=== PATIENT | male | born 1980 ===

== ENCOUNTER 2017-06-22 05:18 | Inpatient (IN) | payer OTHER ==
[~2017-06-22] VITALS: Ht 170.2 cm; Wt 79.4 kg
[2017-06-22] VITALS (15 sets, daily range): BP systolic 115–135; BP diastolic 44–93
[~2017-06-22 05:18] MED LIST: NORCO 10-325 T1 EACH ORAL
[2017-06-22] MEDS ORDERED: Bacitracin 50000 Units Vial ONE ×2 (06:26→09:37)
[2017-06-22] MEDS ORDERED: Thrombin 5000 units TOPIC ONE (06:28)
[2017-06-22] MEDS ORDERED: Surgicel 4in x 8in TOPIC ONE (06:28)
[2017-06-22] MEDS ORDERED: Vancomycin 1gm inj IVPB ONE (06:29)
[2017-06-22] MEDS ORDERED: Heparin 5000 units/ml inj ONE (06:29)
[2017-06-22] MEDS ORDERED: Bupivacaine w/Epi 0.5% 30ml Vial INJ ONE (06:30)
[2017-06-22] MEDS ORDERED: Lidocaine 1% 10mg/ml/Epi 0.005mg/ml 30ml vial INJ ONE (06:30)
[2017-06-22] MEDS ORDERED: oxyCODONE 5mg IR tab ORAL PRN ×2 (06:45)
[2017-06-22] MEDS ORDERED: Tylenol #3 tab (300mg/30mg) ORAL PRN (06:45)
[2017-06-22] MEDS ORDERED: traMADol 50mg tab ORAL PRN (06:45)
[2017-06-22] MEDS ORDERED: PCA HYDROmorphone 1mg/ml 30 ML IV PRN (06:45)
--- NOTE | 2017-06-22 06:52 | Anethesia Preoperative Eval ---
Anesthesia Pre-op PMH/ROS General Date of Evaluation: Jun 22, 2017 Time of Evaluation: 07:11 Anesthesiologist: Abigail ASA Score: ASA 1 Mallampati Score Class I : Soft palate, uvula, fauces, pillars visible Class II: Soft palate, uvula, fauces visible Class III: Soft palate, base of uvula visible Class IV: Only hard plate visible Mallampati Classification: Class II Surgeon: Oz Diagnosis: Back Pain Surgical Procedure: ALIF L4-5, L5-S1, PSF Anesthesia History: none Family History: no anesthesia problems Allergies: Coded Allergies: No Known Allergies (Unverified , 06/19/17) Medications: see eMAR Anesthesia Pre-op Phys. Exam Physician Exam Last Vital Signs Date Time Temp Pulse Resp B/P (MAP) Pulse Ox O2 Delivery O2 Flow Rate FiO2 06/22/17 05:57 98.4 56 19 119/77 95 Room Air Constitutional: NAD Neurologic: CN 2-12 intact Cardiovascular: RRR Respiratory: CTA Gastrointestinal: S/NT/ND Airway Exam Mallampati Score: Class II MO: full ROM: full Teeth: intact Anesthesia Pre-op A/P Risk Assessment & Plan Assessment: ASA 1 Plan: GA, BIS, Glidescope Status Change Before Surgery: No Pre-Antibiotics Dru Grams Ancef IV Given Within 1 Hr of Incision: Yes Cliff Hayes MD Jun 22, 2017 06:52
--- NOTE | 2017-06-22 06:53 | Immediate Post-Op Evaluation ---
Immediate Post-Op Evalulation Immediate Post-Op Evalulation Procedure: ALIF L4-5, L5-S1, PSF Date of Evaluation: Jun 22, 2017 Time of Evaluation: 13:05 IV Fluids: 1600 LR Blood Products: 0 Estimated Blood Loss: 75 Urinary Output: 600 Blood Pressure Systolic: 130 Blood Pressure Diastolic: 83 Pulse Rate: 98 Respiratory Rate: 16 O2 Sat by Pulse Oximetry: 98 Temperature (Fahrenheit): 97.4 Pain Score (1-10): 3 Nausea: No Vomiting: No Complications 0 Patient Status: awake, reacts, patent, extubated, none Hydration Status: adequate Dru Grams Ancef IV Given Within 1 Hr of Incision: Yes Time Given: 07:31 Cliff Hayes MD Jun 22, 2017 06:53
[2017-06-22] MEDS ORDERED: Ketorolac 30mg Inj IV PRN (07:00)
[2017-06-22] MEDS ORDERED: Atropine Inj 1mg/10ml Syr IV PRN (07:00)
[2017-06-22] MEDS ORDERED: Norco 7.5mg/325mg tab ORAL PRN (07:00)
[2017-06-22] MEDS ORDERED: Neostigmine 1mg/ml 10ml Inj ONE (07:00)
[2017-06-22] MEDS ORDERED: DiphenhydrAMINE 50mg/ml Inj IVP PRN (07:00)
[2017-06-22] MEDS ORDERED: NS Irrig 1000ml ONE (07:00)
[2017-06-22] MEDS ORDERED: LR 1000ml ONE (07:00)
[2017-06-22] MEDS ORDERED: fentaNYL 250mcg/5ml ONE (07:00)
[2017-06-22] MEDS ORDERED: LORazepam Inj 2mg/ml 1ml IV PRN (07:00)
[2017-06-22] MEDS ORDERED: ceFAZolin 1gm/50ml Premix 50 ML IV ONE (07:00)
[2017-06-22] MEDS ORDERED: Midazolam 2mg/2ml Inj IVP PRN (07:00)
[2017-06-22] MEDS ORDERED: Meperidine 25mg/0.5ml Inj (FOR RIGORS ONLY) IV PRN (07:00)
[2017-06-22] MEDS ORDERED: oxyCODONE HCL/Acetaminophen 5/325mg ORAL PRN (07:00)
[2017-06-22] MEDS ORDERED: Metoclopramide 10mg/2ml Inj IVP PRN (07:00)
[2017-06-22] MEDS ORDERED: Dexamethasone 20mg/5ml IVP ONE (07:00)
[2017-06-22] MEDS ORDERED: Zemuron 50mg/5ml Inj IV ONE (07:00)
[2017-06-22] MEDS ORDERED: Lidocaine 1% MPF 10mg/ml 5ml ONE (07:00)
[2017-06-22] MEDS ORDERED: Hydromorphone 0.5mg/0.5ml inj IVP PRN (07:00)
[2017-06-22] MEDS ORDERED: Sterile Water Irrig 1000ml IRRIG ONE (07:00)
[2017-06-22] MEDS ORDERED: Propofol 1,000mg/ 100ml btl IV ONE (07:00)
[2017-06-22] MEDS ORDERED: Labetalol 5mg/ml 20ml vial IV ONE (07:00)
[2017-06-22] MEDS ORDERED: Norco 5mg/325mg tab ORAL PRN (07:00)
[2017-06-22] MEDS ORDERED: fentaNYL 100 mcg/2 mL IV PRN (07:00)
[2017-06-22] MEDS ORDERED: Ketorolac 60mg Inj IV PRN (07:00)
[2017-06-22] MEDS ORDERED: Glycopyrrolate 0.2mg/ml 1ml Vial ONE (07:00)
[2017-06-22] MEDS ORDERED: Lidocaine 1% Plain 30 ml INJ ONE (07:00)
--- NOTE | 2017-06-22 07:03 | Pre-Procedure Note/Attestation ---
Pre-Procedure Note/Attestation Complete Prior to Procedure Planned Procedure: not applicable Procedure Narrative: anterior interbody fusion L4-5, L5-S1 Posterior pedicle scrwe instrumentation L4-5-S1 Indications for Procedure Pre-Operative Diagnosis: post trauma lumbar instability , discogenic back pain Attestation I attest that I discussed the nature of the procedure; its benefits; risks and complications; and alternatives (and the risks and benefits of such alternatives ), prior to the procedure, with the patient (or the patient's legal sales representative womens health). I attest that, if there was a reasonable possibility of needing a blood transfusion, the patient (or the patient's legal sales representative womens health) was given the [place] Department of Health Services standardized written summary, pursuant to the [place] Blood Safety Act ([place] Health and Safety Code # 1645, as amended). I attest that I re-evaluated the patient just prior to the surgery and that there has been no change in the patient's H&P, except as documented below: SERGIO BIGGS Jun 22, 2017 07:03
[2017-06-22] MEDS ORDERED: LR 1000ml 1,000 ML IVLG SCH (07:21)
[2017-06-22] MEDS ORDERED: Acetaminophen (Non formulary) 1,000 MG/100 ML ML IV ONE (08:00)
[2017-06-22] MEDS ORDERED: Naloxone 0.4mg/ml Inj IVP PRN ×2 (11:45→12:45)
--- NOTE | 2017-06-22 12:29 | Brief Operative Note ---
Immediate Post Operative Note Operative Note Pre-op Diagnosis: post trauma lumbar instability , discogenic back pain Procedure: L4-5 L5-S1: correction of deformity, interbody device, bmp, fusion, internal fixation SSEP, xray Posterior: Facet fusion L4-5, L5-S1, SSEP, xray, pedicle screw L5, L5, S1 Post-op Diagnosis: same as pre-op Findings: consistent w/pre-op dx studies Surgeon: Anterior: Oz WAY, Bentley WAY, Posterior Oz Sales Clerk Food: Posterior Miguelito SWEENEY Anesthesiologist: Abigail WAY Anesthesia: general Specimen: none Complications: none Condition: stable Fluids: anesthesia Estimated Blood Loss: minimal Drains: none Implant(s) used?: Yes SERGIO BIGGS Jun 22, 2017 12:29
[2017-06-22] MEDS ORDERED: HYDROmorphone 1mg/ml Carpuject SUBQ PRN (12:45)
[2017-06-22] MEDS: PCA HYDROmorphone 1mg/ml 30 ML IV PRN (13:02)
--- NOTE | 2017-06-22 13:59 | Diagnostic Imaging Report ---
Indication: PAIN, intraoperative, pain in low back and left lower extremity greater than right lower extremity Technique: Digital intraoperative images Comparison: Findings: Intraoperative images demonstrate surgical tool projected at the anterior aspect of what is presumably the L4-5 disc. Subsequent images demonstrate placement of disc spacers at L4-5 and L5-S1 and posterior fusion hardware bridging L4-S1. Impression: Intraoperative imaging, as described
[2017-06-22] MEDS: D5 1/2NS 1,000 ML IV SCH ×2 (15:54→23:30)
[2017-06-22] MEDS: ceFAZolin sod 1 GM in D5W 55 ML IV SCH ×2 (15:54→23:25)
[2017-06-22] MEDS: Docusate 100mg cap ORAL SCH (16:46)
[2017-06-22] MEDS: LORazepam 0.5mg tab ORAL SCH (16:46)
[2017-06-22] MEDS ORDERED: Milk of Magnesia 30ml Ud ORAL PRN (17:30)
--- NOTE | 2017-06-22 18:00 | Cardiology Progress Note ---
Assessment/Plan Assessment/Plan [id number] Objective Last 24 Hour Vital Signs Date Time Temp Pulse Resp B/P (MAP) Pulse Ox O2 Delivery O2 Flow Rate FiO2 06/22/17 16:00 17 06/22/17 16:00 97.4 97 19 123/83 97 Nasal Cannula 2.0 06/22/17 15:05 97.2 95 19 127/88 98 Nasal Cannula 2.0 06/22/17 14:45 97.8 94 19 126/90 96 Nasal Cannula 2.0 06/22/17 14:30 16 06/22/17 14:30 97.8 98 19 129/93 97 Nasal Cannula 2.0 06/22/17 14:10 97.6 97 15 135/89 98 Nasal Cannula 3.0 06/22/17 14:00 15 06/22/17 13:57 97.4 06/22/17 13:56 97.4 06/22/17 13:55 96 13 123/44 98 Nasal Cannula 3.0 06/22/17 13:45 10 06/22/17 13:45 96 10 131/90 98 Nasal Cannula 3.0 06/22/17 13:35 95 13 133/80 98 Nasal Cannula 3.0 06/22/17 13:30 14 06/22/17 13:25 98 13 133/89 97 Nasal Cannula 3.0 06/22/17 13:15 95 12 133/89 98 Nasal Cannula 3.0 06/22/17 13:15 12 06/22/17 13:05 92 14 131/86 98 Simple Mask 6.0 06/22/17 13:02 14 06/22/17 13:00 94 16 129/86 98 Simple Mask 6.0 06/22/17 12:55 98 16 98 06/22/17 12:54 97.4 93 13 130/85 99 Simple Mask 6.0 06/22/17 05:57 98.4 56 19 119/77 95 Room Air Intake and Output 06/22/17 06/23/17 19:00 07:00 Intake Total 1925 ml Output Total 1250 ml Balance 675 ml Intake IV Total 1925 ml Output Urine Total 1200 ml Estimated Blood Loss 50 ml MARGARITO CANDELARIA Jun 22, 2017 18:00
[2017-06-22] MEDS: PCA shift volume MISC SCH (19:29)
[2017-06-22] MEDS ORDERED: Rate Change PCA 1 Each MISC PRN (19:30)
[2017-06-22] MEDS ORDERED: PCA Education Pamphlet MISC ONE (20:00)
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
[2017-06-23] VITALS (7 sets, daily range): BP systolic 21–124; BP diastolic 68–77
--- NOTE | 2017-06-23 00:15 | Operative Note - Dictated ---
DATE OF OPERATION: 06/22/2017 SURGEON: Phillip Clinton Ph.D. MD. ANTERIOR CO-SURGEON: Santi Hagan M.D., Vascular Surgery. POSTERIOR PANELBOARD OPERATOR: PATEL Al. ANESTHESIOLOGIST: Cliff Hayes M.D ANESTHESIA: General with intubation. ESTIMATED BLOOD LOSS: 50 mL. COMPLICATIONS: None. POSTOPERATIVE CONDITION: Good/stable. DRAINS: None. SPECIMEN: None. Preoperative Diagnosis: Posttraumatic lumbar spine instability/diskogenic back pain. Postoperative Diagnosis: Posttraumatic lumbar spine instability/diskogenic back pain. OPERATIVE PROCEDURE: Anterior: 1. Please see exposure and closure report of Dr. Hagan with Dr. Clinton as assist. 2. Anterior interbody reconstruction/fusion L4-L5, L5-S1 with correction deformity. 3. Internal fixation placement. 4. Bone morphogenic protein. 5. Placement interbody titanium device. 6. Intraoperative x-rays interpreted by surgeons. 7. SSEP monitoring. POSTERIOR: 8. Pedicle screw instrumentation, bilateral L4, L5, and S1. 9. SSEP monitoring. 10. Pedicle stimulation. 11. Intraoperative x-rays interpreted by surgeon. 12. Facet fusion L4-L5, L5-S1 bilateral. 13. Local anesthetic applied by surgeon. Procedure In Detail: The patient was brought to the operating room and in the supine position general anesthesia with intubation was induced. Intravenous antibiotics and intravenous Decadron were administered 30 minutes prior to incision time. After appropriate positioning, the anterior abdomen was sterilely prepped and draped free in usual sterile fashion. Please see exposure and closure report of Dr. Hagan. L4-L5 was confirmed in the AP and lateral planes under sterile conditions with needle in position. Position marked. Annulotomy performed with diskectomy tube but not through the posterior longitudinal ligament. Severe collapse noted. End-plates were denuded inferior L4, superior L5 cartilage to bleeding bone. Subchondral bone integrity maintained. SSEP monitoring was normal. Correction of the collapse to lordosis was undertaken with interposition of interbody device with 8 degrees of lordosis containing bone morphogenic protein placed for interbody fusion. Internal fixation with the appropriate pin deployment of the interbody device was undertaken. Device encapsulated in fibrin glue. Attention was turned to the L5-S1 interval. AP and lateral radiographs under sterile conditions with a needle marker in place were undertaken for determination of level and midline. Midline marked appropriately. Needle removed. Annulotomy performed followed with diskectomy tube, but not through the posterior longitudinal ligament. SSEP stable at all times. Collapse noted. Endplates denuded of cartilage and endplates denuded. Attention was turned with retractor placement at L5-S1. Needle placed through the anterior anulus. AP and lateral fluoroscopic images under sterile conditions were utilized and interpreted by surgeons for determination of midline and correct level. Position of the needle recorded. Needle removed. Annulotomy followed with diskectomy tube, but not through the posterior longitudinal ligament with removal of cartilaginous endplate caps inferior L5 and superior S1. Subchondral bone integrity maintained. Correction of collapse and deformity within a position of titanium device containing bone morphogenic protein for augmented fusion interbody. Internal fixation was undertaken with deployed pins. Position excellent with fluoroscopic imaging. Graft was incorporated in fibrin glue. Wound was copiously irrigated with antibiotic-containing saline. Please see closure by Dr. Hagan. After the bandage was maintained in place with tape and irrigated with antibiotic-containing saline. Please see closure of Dr. Hagan. Sterile bandages applied and maintained in place with tape. All instruments were removed from the room. The patient was carefully turned to operating table from supine to prone and appropriately positioned. Back was sterilely prepped. Spinal needles were placed in midline into subcutaneous tissue only and a cross-table fluoroscopic image was obtained under sterile conditions demonstrating a correct position for incision placement. [place] were removed. Back was re-sterilely prepped and draped free in usual sterile fashion. A longitudinal incision over the appropriate intervals was undertaken. Subcutaneous sharp dissection through dermis and epidermis with subcutaneous tissue dissection with electrocautery. Subperiosteal dissection bilaterally over the respective lamina at L3, L4, L5, and superior S1. Pedicle screw instrumentation was undertaken bilaterally pedicles L4, L5, and S1 with determination of position by anatomical landmarks and fluoroscopic guidance. Drilling of the posterior cortex. Determination of pedicle with a pedicle feeler. Depth determination of screw. Tapping of the pedicle finders holes followed with physical determination of cortical wall integrity with ball-tip probe. No EMGs at any level. The patient was not paralyzed. Appropriate screws were placed. [place] excellent. Pedicle screw stimulation to 5 milliamps without response L4, L5, and S1 bilaterally. Interconnecting mike placed and torqued into appropriate position. Wound irrigated with antibiotic-containing saline. The set fusion was undertaken with Midas Lg bur dissection and local graft at L4-L5 and L5-S1. A 2 g of vancomycin powder was placed. Sequential reapproximation of the lumbodorsal fascia and subcutaneous tissue. Subcuticular closure of dermis and epidermis. Surgical strips applied followed a sterile bandage maintained in place with tape. The patient was carefully turned from the prone to the supine position on the transport bed where he was awakened and extubated in the operating room and transported to postoperative recovery in good stable condition. Phillip Clinton M.D. DR: DAVIAN JOB#: [id number] CC:
--- NOTE | 2017-06-23 01:00 | Operative Note - Dictated ---
DATE OF OPERATION: 06/22/2017 VASCULAR SURGEON: Santi Hagan M.D. SPINE SURGEON: Phillip Clinton M.D. PREOPERATIVE DIAGNOSIS: Degenerative disc disease. POSTOPERATIVE DIAGNOSIS: Degenerative disc disease. PROCEDURES: 1. Anterior retroperitoneal exposure of L4-L5 vertebral interspace. 2. Anterior retroperitoneal exposure of L5-S1 vertebral interspace. Indication: The patient is a very pleasant gentleman who was seen in my office prior to surgery. He has had no prior anterior abdominal surgery. No history of deep venous thrombosis was described. The patient was made aware of the risks of surgery including possibility of vascular injury, deep venous thrombosis, and bleeding complications. Description Of Findings: A low vertical midline incision was used. A left retroperitoneal approach was used. There was no vascular injury. Exposure of L5-S1 was obtained below the iliac bifurcation and exposure of L4-L5 was obtained above the iliac bifurcation with retraction of the left iliac vessels towards the patient's right. On completion, the peritoneum and ureter were intact. Iliac vessels were intact. Blood loss was approximately 100 mL and complications were none. There were palpable femoral and pedal pulses, and pulse oximetry and neurologic monitoring were normal throughout the case. Description Of Procedure: The patient was taken to the operative room. General anesthesia was used. IV antibiotics were given. The patient's abdomen was prepped and draped. Appropriate time-out procedures were taken. A vertical midline incision was made infraumbilically. The anterior fascia was incised longitudinally in the midline. A plane was identified posterior to the left rectus abdominis and developed posterolaterally towards the patient's left. Retroperitoneal space was bluntly entered below the arcuate line. The peritoneum and ureter were mobilized towards the patient's right, exposing the left common iliac vessels. Dissection was carried on the undersurface of the left common iliac vein. The middle sacral artery and vein were ligated with vascular clips and divided, and this allowed us to retract the left iliac vessels superiorly and laterally exposing the anterior surface of the L5-S1. The dissection was then carried out towards the left side of the left iliac artery and vein. Overlying lymphatics were ligated with vascular clips. The iliolumbar vein was identified and encircled using a 2-0 silk tie and then triply ligated proximally and distally with vascular clips. The L4 segmental artery and vein were also identified and ligated with vascular clips. This allowed us to retract the left iliac vein towards the patient's right exposing the anterior surface of the L4-L5. The Omni retractor was initially set to expose L4-L5 and then instrumentation and fusion performed at L4-L5 and dictated separately. On completion at this level, the retractor was repositioned above the iliac bifurcation and instrumentation was performed at L5-S1 and dictated separately. On completion, the retractor was gently removed. The peritoneum and ureter were intact. The iliac vessels were intact. The anterior fascia was then closed using #1 PDS in a running fashion. Skin and subcutaneous tissue were closed using 3-0 Vicryl and 4-0 Monocryl in a running subcuticular closure technique. Estimated blood loss was less than 100 mL. Complications none. Santi Hagan M.D. DR: CHERY JOB#: [id number] CC:
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
[2017-06-23] MEDS: PCA shift volume MISC SCH ×2 (07:00→19:00)
[2017-06-23] MEDS: ceFAZolin sod 1 GM in D5W 55 ML IV SCH (07:56)
[2017-06-23] MEDS: D5 1/2NS 1,000 ML IV SCH ×4 (07:57→21:43)
[2017-06-23] MEDS: Docusate 100mg cap ORAL SCH ×2 (08:31→17:10)
--- NOTE | 2017-06-23 10:07 | 48 Hour Post Anesthesia Eval ---
Post Anesthesia Evaluation Procedure: ALIF L4-5, L5-S1, PSF Date of Evaluation: Jun 23, 2017 Time of Evaluation: 10:06 Blood Pressure Systolic: 125 0: 64 Pulse Rate: 76 Respiratory Rate: 20 Temperature (Fahrenheit): 97.8 O2 Sat by Pulse Oximetry: 98 Airway: patent Nausea: No Vomiting: No Pain Intensity: 3 Hydration Status: adequate Cardiopulmonary Status: stable Mental Status/LOC: patient returned to baseline Follow-up Care/Observations: n/a Post-Anesthesia Complications: none Follow-up care needed: N/A MADELIN RING M.D. Jun 23, 2017 10:07
[2017-06-23] MEDS: PCA HYDROmorphone 1mg/ml 30 ML IV PRN (13:33)
[2017-06-23] MEDS: LORazepam 0.5mg tab ORAL SCH (15:33)
--- NOTE | 2017-06-23 17:01 | Cardiology Progress Note ---
Assessment/Plan Assessment/Plan 1. Intervertebral lumbar disc herniation. 2. Bradycardia. 3. Right axis deviation. 4. Abnormal chest x-ray orthostatic vital ivf if positive dvt ppx ambualte as allow once has bm and can eat will be ready for dc Subjective Cardiovascular: Reports: lightheadedness, Denies: chest pain, palpitations Respiratory: Denies: shortness of breath, SOB with excertion Gastrointestinal/Abdominal: Denies: abdominal pain Genitourinary: Denies: burning Objective Last 24 Hour Vital Signs Date Time Temp Pulse Resp B/P (MAP) Pulse Ox O2 Delivery O2 Flow Rate FiO2 06/23/17 16:00 99.2 93 16 118/72 96 Room Air 06/23/17 16:00 16 06/23/17 12:00 16 06/23/17 11:48 97.7 88 16 110/72 94 Room Air 06/23/17 10:07 76 20 98 06/23/17 08:00 100.3 91 18 106/71 100 Room Air 06/23/17 08:00 16 06/23/17 05:20 98.0 87 18 114/68 99 Nasal Cannula 2.0 06/23/17 04:00 16 06/23/17 04:00 98.2 91 15 116/74 95 Room Air 06/23/17 00:00 18 06/23/17 00:00 97.8 96 16 121/71 96 Nasal Cannula 2.0 06/22/17 20:00 98.0 88 17 115/77 96 Nasal Cannula 2.0 06/22/17 20:00 18 General Appearance: no apparent distress Neck: supple Cardiovascular: normal rate, regular rhythm Respiratory/Chest: lungs clear, normal breath sounds Abdomen: normal bowel sounds, non tender, soft Extremities: no swelling Intake and Output 06/23/17 06/24/17 19:00 07:00 Intake Total 2279 ml Output Total 950 ml Balance 1329 ml Intake IV Total 2279 ml Output Urine Total 950 ml Microbiology Date/Time Source Procedure Growth Status 06/22/17 06:00 Nasal Nares MRSA Culture - Final NO METHICILLIN RESISTANT STAPH AUREUS... Complete MARGARITO CANDELARIA Jun 23, 2017 17:01
--- NOTE | 2017-06-23 19:00 | Progress Note ---
DATE: 06/23/2017 ACUTE PAIN MANAGEMENT PHYSICIAN PROGRESS NOTE SUBJECTIVE: Medication administration record reviewed. Medications: Include IV fluids, Colace, Protonix, nightly Ativan, Ancef, Cepacol, Benadryl, Dilaudid, Dilaudid DIGITAL EDITOR, Mylanta, Narcan, Zofran, [place], and Tylenol. LABORATORY STUDIES: No interval laboratory studies. PHYSICAL EXAMINATION: Vital Signs: Within normal limits. Pain level is 5/10 on the visual analog pain scale. Afebrile, pulse 87, respirations 18, blood pressure 114/68, and oxygen saturation 99% on supplemental oxygen. I spent over 60 minutes in consultation today. I saw the patient at bedside with his and the night nurse, PILY Lentz. The patient is neurologically grossly intact with 5/5 dorsiflexion and 5/5 plantar flexion in bilateral lower extremity. Courtney catheter remains in place, but shows rather concentrated urine. I will increase his IV fluid rate to 150 mL an hour and bolus him with 0.5 L of fluids as well, to help reduce the risk for orthostatic hypotension which may develop when he begins with physical therapy training later today. The patient has been using his DIGITAL EDITOR unit. The patient already has good supply of [place] for home usage. I will continue with DIGITAL EDITOR unit at this time. I also have recommended breakthrough doses of subcutaneous Dilaudid along with oral [place] to be used when the patient is able to tolerate. He is not yet passing positive flatus after his anterior lumbar interbody fusion procedure. I will continue him with a limited diet only of ice chips and medications until there is better evidence of bahai of bowel function. The patient will wean IV fluids for adequate hydration. I did explain to the patient and his to aggressively use incentive spirometer to avoid postoperative pneumonia and atelectasis. The patient does have sequential compression pneumatic devices on board for DVT prophylaxis. The patient does drink beer nearly every evening. He tolerated the oral dose of Ativan, which I started last night and I will continue that on a daily basis for delirium tremens prophylaxis. Overall, the patient seemed to be progressing on on-schedule after his extensive lumbar spine fusion surgery. He will begin physical therapy training later today and we will continue supportive care during his hospital recovery. Fili Weaver M.D. DR: RADHA JOB#: [id number] CC:
[2017-06-24 00:29] VITALS: BP 128/70
[2017-06-24] MEDS: D5 1/2NS 1,000 ML IV SCH ×3 (03:38→13:38)
[2017-06-24 04:00] VITALS: BP 132/82
[2017-06-24 07:51] VITALS: BP 115/84
[2017-06-24] MEDS: Docusate 100mg cap ORAL SCH ×2 (08:28→17:07)
[2017-06-24 11:33] VITALS: BP 126/83
[2017-06-24] MEDS: Norco 10mg/325mg tab ORAL PRN (12:36)
[2017-06-24] MEDS ORDERED: D5 1/2NS 1000ml IV ONE ×2 (13:59→15:49)
--- NOTE | 2017-06-24 15:32 | Cardiology Progress Note ---
Assessment/Plan Assessment/Plan 1. Intervertebral lumbar disc herniation. 2. Bradycardia. 3. Right axis deviation. 4. Abnormal chest x-ray artifact orthostatic vital ivf dvt ppx ambualte as allowed hs foely in place rose staffordhali seem clean and dry post dressign clean and dry no flatus has pain will notify dr lynn once has bm and can eat will be ready for dc Subjective Cardiovascular: Denies: chest pain, lightheadedness Respiratory: Denies: shortness of breath Gastrointestinal/Abdominal: Reports: constipated, Denies: nausea Genitourinary: Denies: burning - ceballos black inplace Subjective c/o pain inteh left leg still Objective Last 24 Hour Vital Signs Date Time Temp Pulse Resp B/P (MAP) Pulse Ox O2 Delivery O2 Flow Rate FiO2 06/24/17 11:33 98.1 97 20 126/83 93 Room Air 06/24/17 07:51 97.6 97 20 115/84 94 Room Air 06/24/17 04:00 17 06/24/17 04:00 98.8 95 18 132/82 93 Room Air 06/24/17 00:29 97.9 95 19 128/70 96 Room Air 06/24/17 00:00 17 06/23/17 20:30 100.4 96 20 124/77 95 Room Air 06/23/17 20:00 17 06/23/17 16:00 99.2 93 16 118/72 96 Room Air 06/23/17 16:00 16 General Appearance: no apparent distress Neck: no JVD Cardiovascular: normal rate, regular rhythm Respiratory/Chest: lungs clear, normal breath sounds Abdomen: soft, hypoactive bowel sounds Extremities: non-tender, no swelling Intake and Output 06/24/17 06/25/17 19:00 07:00 Intake Total 825 ml Output Total 850 ml Balance -25 ml IV Total 825 ml Output Urine Total 850 ml # Voids 1 Microbiology Date/Time Source Procedure Growth Status 06/22/17 06:00 Nasal Nares MRSA Culture - Final NO METHICILLIN RESISTANT STAPH AUREUS... Complete MARGARITO CANDELARIA Jun 24, 2017 15:32
[2017-06-24] MEDS: LORazepam 0.5mg tab ORAL SCH (15:46)
[2017-06-24] MEDS ORDERED: NS 275ml ONE (15:49)
[2017-06-24 15:57] VITALS: BP 120/77
[2017-06-24 20:10] VITALS: BP 130/84
--- NOTE | 2017-06-24 21:30 | Progress Note ---
DATE: 06/24/2017 ACUTE PAIN MANAGEMENT PHYSICIAN PROGRESS NOTE Medications: Medication administration record reviewed. Medications include Protonix, Zofran, Narcan, magnesium citrate, Ativan, Dilaudid, [place], Colace, Benadryl, Cepacol, Mylanta, Tylenol, IV fluids, QUILL MACHINE TENDER Dilaudid. LABORATORY STUDIES: No interval laboratory studies. OBJECTIVE: Vital Signs: Pain level 3 out of 10 on the visual analog pain scale, oxygen saturation 93% on room air, respirations 17, afebrile, pulse 99, and blood pressure 132/82. I spent over 60 minutes in consultation today. I saw the patient at the bedside with the nurse RN, Lina along with the night nurse RN, Mary Carmen. The patient states that he ambulates three times with physical therapy yesterday. He has been sedentary all night per the night nurse. The patient's remains at the bedside. There was a suggestion that the patient did pass flatus one time yesterday. However that has not been repeated and the patient is having somewhat abdominal bloating, which is expected after this procedure. I would continue keeping the patient NPO except for medications and ice chips until there is a better evidence for improvement in bowel function. I did increase his IV fluid rate from 125 mL an hour to 150 mL an hour yesterday as I saw that his urine appeared somewhat concentrated. Urine output continues to be somewhat concentrated, so I increased the fluid to 175 yesterday and I will continue this rate until he advances his diet. We will hold off on advancing his diet until there is better evidence of flatus. The patient is afebrile. The patient's states that the patient has been compliant using his incentive spirometer. Overnight, the patient used over 7 mg of Dilaudid via the QUILL MACHINE TENDER unit. I suspect this considerable Dilaudid dosing is reducing his gastrointestinal function. Therefore, I will discontinue the QUILL MACHINE TENDER at this time. He will continue to have the p.r.n. doses of subcutaneous Dilaudid and [place] available, but hopefully with the QUILL MACHINE TENDER unit out of his direct reach, there will be a decreased use of opioid narcotics and less inhibition of taoist of bowel function. The patient is alert and oriented x3. He is moving all extremities x4. A front wheel walker has been left at the bedside to encourage out of bed and ambulation, which I encouraged. The day nurse RN, Lina will check-in later with the surgeon, Dr. Clinton for further instructions regarding diet and Courtney catheter removal. Fili Weaver M.D. DR: PRATIBHA JOB#: [id number] CC:
[2017-06-25] MEDS: D5 1/2NS 1,000 ML IV SCH ×4 (00:07→21:00)
[2017-06-25 00:22] VITALS: BP 120/72
[2017-06-25] MEDS: Norco 10mg/325mg tab ORAL PRN ×5 (02:16→22:48)
[2017-06-25 04:00] VITALS: BP 128/87
[2017-06-25] MEDS ORDERED: Magnesium Citrate Liq Btl ORAL PRN (07:15)
[2017-06-25 08:05] VITALS: BP 128/82
[2017-06-25] MEDS: Docusate 100mg cap ORAL SCH ×2 (09:38→17:41)
--- NOTE | 2017-06-25 11:02 | Diagnostic Imaging Report ---
Indications: Left groin pain shooting down left lower extremity, status post lumbar fusion surgery Technique: Spiral acquisitions obtained through the lumbar spine. Multiplanar reconstructions were generated. No IV contrast utilized, per protocol. Total dose length product 492 mGycm. CTDIvol(s) 16 mGy. Dose reduction achieved using automated exposure control Comparison: None Findings: There is considerable streak artifact from fusion hardware the lower lumbar spine which limits soft tissue detail and extra pathology. The patient is status post placement of disc spacers at L4-5 and L5-S1. The disc spacers appear well aligned. Surgical clips are seen anterior to the lumbar spine. There are pedicle screws at L4, L5, and S1. Fusion rods connect the pedicle screws. The L4 pedicle screws appear to be entirely within the pedicles, and do not appear to intrude upon the foramina or lateral recesses. The tips are within the vertebral bodies The L5 pedicle screws likewise appear to be entirely interpedicular, without evidence of intrusion into the neural foramina or the spinal canal. The tips remain within the vertebral bodies. The S1 screws do not appear to impinge upon the spinal canal or sacral foramina. The tips protrude a few millimeters beyond the anterior margin of the sacrum. Gas bubbles are seen within the posterior paraspinous soft tissues and subcutaneous fat, presumably retained air from the surgical exposure. Gas bubbles are also seen in the bilateral L4-5 facet joints, as well as in the left L5-S1 facet. This is probably related to the recent surgery, but could also be vacuum phenomena secondary to degenerative change. Some gas bubbles are also seen in the subcutaneous fat of the left iliac fossa and anterior to the left psoas muscle, presumably also related to the recent surgical exposure. There is some asymmetric swelling of the left psoas muscle as well as inflammation of the fat anterior to the left psoas muscle. There is minimal inflammation of the fat anterior to the right psoas muscle.. No definite epidural hematoma is demonstrated. No definite disc old or protrusion, although L4-5 and L5-S1 image degradation due to streak artifact is sufficient to preclude confident exclusion of such. At T12-L1 through L3-4, no significant disc bulge or protrusion, spinal stenosis, or neural foraminal narrowing is demonstrated. Impression: Post surgical changes, as described, status post posterior fusion at L4-S1 and degenerative disease at L4-5 and L5-S1. Good anatomic alignment of the hardware. No evidence of hardware malalignment that would explain patient symptomatology Asymmetric enlargement of the left psoas muscle and inflammation of the surrounding soft tissues, presumably related to the recent surgical exposure. Note limited assessment of the lower lumbar and upper sacral spinal canal, due to streak artifact from the hardware. No definite epidural abscess or other findings that would suggest neural impingement in the lower lumbar spine No definite evidence of significant neural impingement elsewhere. Findings discussed by phone with Dr. Clinton at the time of interpretation The CT scanner at [facility] is accredited by the [employer] and the scans are performed using protocols designed to limit radiation exposure to as low as reasonably achievable to attain images of sufficient resolution adequate for diagnostic evaluation.
[2017-06-25 12:20] VITALS: BP 129/76
[2017-06-25] MEDS: LORazepam 0.5mg tab ORAL SCH (13:25)
[2017-06-25 16:09] VITALS: BP 121/88
[2017-06-25 20:15] VITALS: BP 121/86
--- NOTE | 2017-06-25 20:37 | Cardiology Progress Note ---
Assessment/Plan Assessment/Plan 1. Intervertebral lumbar disc herniation. 2. Bradycardia. 3. Right axis deviation. 4. Abnormal chest x-ray artifact 5. leg pain relate to iliopsoas muscle per dr lynn dvt ppx ambualte as allowed hoem soon ct reviewed Subjective Cardiovascular: Denies: lightheadedness, palpitations Respiratory: Denies: shortness of breath Gastrointestinal/Abdominal: Denies: abdominal pain, constipated Genitourinary: Denies: burning Subjective c/o pain inteh left leg still but better ate Objective Last 24 Hour Vital Signs Date Time Temp Pulse Resp B/P (MAP) Pulse Ox O2 Delivery O2 Flow Rate FiO2 06/25/17 20:17 78 80 06/25/17 20:15 98.5 78 18 121/86 96 Room Air 06/25/17 18:35 98.4 06/25/17 16:09 98.4 93 20 121/88 99 Room Air 06/25/17 12:20 97.9 80 18 129/76 98 Room Air 06/25/17 08:05 97.6 78 20 128/82 98 Room Air 06/25/17 08:00 98 91 93 06/25/17 04:00 97.6 102 19 128/87 95 Room Air 06/25/17 00:22 98.1 90 18 120/72 97 Room Air 06/24/17 21:00 100 89 99 General Appearance: alert Neck: supple Cardiovascular: normal rate, regular rhythm Respiratory/Chest: lungs clear, normal breath sounds Abdomen: normal bowel sounds, non tender, soft Extremities: no swelling Intake and Output 06/25/17 06/26/17 19:00 07:00 Intake Total 1550 ml 125 ml Output Total 800 ml Balance 750 ml 125 ml Intake Oral 300 ml IV Total 1250 ml 125 ml Output Urine Total 800 ml # Voids 3 # Bowel Movements 1 MARGARITO CANDELARIA Jun 25, 2017 20:37
[2017-06-26 04:00] VITALS: BP 123/76
[2017-06-26] MEDS: Norco 10mg/325mg tab ORAL PRN ×2 (06:55→12:17)
[2017-06-26 08:00] VITALS: BP 115/74
[2017-06-26 12:00] VITALS: BP 115/68
--- NOTE | 2017-06-26 12:30 | Progress Note ---
DATE: 06/25/2017 ACUTE PAIN MANAGEMENT PHYSICIAN PROGRESS NOTE Medications: Medication administration record reviewed. Medications include Protonix, Narcan, magnesium citrate, Ativan, Dilaudid, [place], folate, Benadryl, Cepacol, Mylanta, and Tylenol. LABORATORY STUDIES: No interval laboratory studies. Vital Signs: Afebrile, pulse 80, respirations 18, blood pressure 121/86, and oxygen saturation 96% on room air. Summary: I spent over 60 minutes in consultation today. I saw the patient at the bedside with his after discussion with the nurse. The patient has been ambulating more aggressively. He was starting to pass positive flatus and he was advanced to clear liquid without any problem. For pain control, the patient has been using Dilaudid injection with breakthrough [place]. He continued to receive nightly Ativan, which I ordered due to his nightly beer usage at home preoperatively. The patient has been complaining of left lower extremity radicular pain. His motor strength seemed intact. Surgeon, Dr. Clinton will address the persistent left lower extremity pain. His motor function appears adequate at this time. We will continue to advance his ambulation and diet. The patient lives in [place]. The will drive home when the patient is cleared for discharge. I continued to encourage incentive spirometer usage for good pulmonary toilet. Fili Weaver M.D. DR: Yevgeniy JOB#: [id number] CC:
--- NOTE | 2017-06-26 12:45 | Progress Note ---
DATE: 06/26/2017 ACUTE PAIN MANAGEMENT PHYSICIAN PROGRESS NOTE SUBJECTIVE: Medication administration record reviewed. Medications: Include IV fluids, Colace, Protonix, and Ativan. The p.o. medications include Cepacol, Benadryl, Dilaudid, Mylanta, Narcan, Zofran, [place], Tylenol, and magnesium citrate. LABORATORY STUDIES: No interval laboratory studies. OBJECTIVE: Vital Signs: Blood pressure 129/76, pulse 80, afebrile, respirations 18, and room air oxygen saturation 99%. I spent over 60 minutes in consultation today. I saw the patient at the bedside after discussion with the nurse RN, Zonia. The patient's remains at the bedside. The patient had two large bowel movements after his advanced diet, it was well tolerated and he continued to increase his ambulation. I will discontinue IV fluids. I will discontinue Colace and as needed laxatives to avoid over-laxative usage and diarrhea. The patient has been compliant, using his incentive spirometer, remains afebrile. The patient still complains of residual left buttock and left lower extremity pain. I encouraged the patient to continue ambulating and to be patient to see if the symptoms improve over the next couple of weeks until the patient sees Dr. Phillip Clinton, surgeon back in the surgical outpatient clinic office visit, which is already scheduled. The patient has requested a front wheel walker and a raised toilet seat, [id number] commode. I have asked the nurse to see if central supply can dispense such DME equipment. The patient has been more ambulatory. There has been no oversedation with his daily dose of Ativan. I will continue the Ativan while he is here in the hospital. He has been using [place] and Dilaudid with good analgesic effect. I encouraged the patient to be generous requesting as needed opioids to help smooth long drive back to [place] later today. I would expect that after his bowel movement following his anterior approach lumbar interbody fusion procedure, Dr. Clinton will likely decide to discharge the patient to home. As the patient is afebrile and has faith of normal bowel function with adequate pain control on oral analgesics, I see no relative contraindication for discharge trial home if the surgeon agrees. The patient and are in agreement with the plan. The is very supportive and will be able to assist with activities of daily living. There have been no episodes of delirium tremens or alcohol withdrawal here in the hospital so far. Fili Weaver M.D. DR: RADHA JOB#: [id number] CC:
[2017-06-26] MEDS ORDERED: D5 1/2NS 1000ml IV ONE (13:29)
--- NOTE | 2017-06-27 12:07 | Brief Operative Note ---
Immediate Post Operative Note Operative Note Pre-op Diagnosis: post trauma lumbar instability , discogenic back pain Procedure: L4-5 L5-S1: correction of deformity, interbody device, bmp, fusion, internal fixation SSEP, xray Posterior: Facet fusion L4-5, L5-S1, SSEP, xray, pedicle screw L5, L5, S1 Post-op Diagnosis: same as pre-op Findings: consistent w/pre-op dx studies Surgeon: Bentley Biggs Hopkins, Read Posterior Cyber Systems Engineer: Miguelito Posterior Anesthesiologist: Abigail Anesthesia: general Specimen: none Complications: none Condition: stable Fluids: see anesthesia Estimated Blood Loss: minimal Drains: none Implant(s) used?: Yes SERGIO BIGGS Jun 27, 2017 12:07
--- NOTE | 2017-06-27 23:45 | Operative Note - Dictated ---
DATE OF OPERATION: 06/27/2017 SURGEON: Layne, Dr. Santi Hagan. Vascular Surgeon: Phillip Clinton M.D., Orthopedic spine surgery, posterior. BUILDING SERVICES ENGINEER: PATEL Al. ANESTHESIOLOGIST: Cliff Hayes M.D. ANESTHESIA: General with intubation. ESTIMATED BLOOD LOSS: 50 mL. DRAINS: None. COMPLICATIONS: None. POSTOPERATIVE CONDITION: Good/stable. 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 PROCEDURE: Anterior, 1. Please see separate report of Dr. Hagan with Dr. Clinton assist for exposure and closure. 2. L5-S1 correction deformity. 3. Interbody reconstruction fusion. 4. Bone morphogenic protein application. 5. Interbody device internal fixation L4-L5 same. POSTERIOR: 6. Pedicle screw instrumentation, bilateral L4, S1. 7. Anterior/posterior SSEP monitoring. 8. Intraoperative fluoroscopy interpreted by surgeons. 9. Posterior local anesthetic 1% lidocaine with epinephrine. 10. Local anesthetic applied by surgeon. 11. Facet fusion bilaterally L4 and bilateral S1. Procedure: Anterior: L5-S1 interspace was defined with placement of the needle into the disk space with AP and lateral radiographs under sterile conditions demonstrating the correct level and midline. Levels were marked. Large anterior osteophyte was resected, anterior inferior L5. Annulotomy followed with diskectomy tube, but not through the posterior longitudinal ligament. SSEP monitoring is stable at all times. No dural tears or leaks noted anytime during the procedure. End plates denuded of cartilagenous end gaps. Correction of kyphosis to lordosis 8 degrees. Interpositional graft in the appropriate dimension and Aero graft. Internal fixation undertaken. Graft containing bone morphogenic protein for fusion. Graft incorporated in fibrin glue. Attention was turned to the L4-L5 interval with midline and level was determined with needle placement in the AP and lateral planes. Recorded. Needle removed. Annulotomy followed with diskectomy tube, but not through the posterior longitudinal ligament. Interpositional grafting with a lordotic 12-degree titanium Aero cages containing bone morphogenic protein for fusion. Internal fixation undertaken. SSEP monitoring is stable at all times. Correction excellent. Graft incorporated in fibrin glue. Posterior: The skin was sterilely prepped. Spinal needles placed under sterile conditions into the subcutaneous tissue and cross-table fluoroscopic imaging obtained demonstrating the correct levels for incision placement. [place] removed. Back re-sterilely prepped and draped free in the usual sterile fashion. Longitudinal incision with appropriate intervals sharply placed through dermis and epidermis. Electrocautery dissection through the subcutaneous tissue to the level of the lumbodorsal fascia was incised right and left of midline over the respective intervals with exposure of the pars interarticularis and the sacral ala. Confirmation with markers and cross-table imaging. Bilateral L4, bilateral S1 pedicle screw instrumentation was undertaken with sequential drilling of the posterior cortex with fluoroscopic guidance and anatomical guidance followed with probing of the pedicle. Determination of length with fluoroscopic guidance. Tapping followed with physical determination of cortical wall integrity with a ball-tipped probe followed the screw insertion. No EMG activity at any level noted. Pedicle screw stimulation undertaken at 5 milliamps bilateral L4 and bilateral S1. Negative. Recorded. Interconnecting rods torqued into position appropriately. The facet fusions were undertaken were local bone with denuding of the articular surfaces to bleeding bone. Packed. Wound irrigated with antibiotic-containing saline. A 1 gram vancomycin powder placed. SSEP monitoring stable. Sequential reapproximation of the lumbodorsal fascia and subcutaneous tissue. Running subcuticular suture followed surgical strips and sterile bandage maintained in place with tape. The patient was carefully turned from the prone to supine position on the transport bed where he was awakened, extubated in the operating room, and transported to postop recovery. Intravenous antibiotics and intravenous Decadron were administered 130 minutes prior to incision time. Phililp Clinton M.D. DR: PAPITO JOB#: [id number] CC:
--- NOTE | 2017-06-28 09:51 | Discharge Summary ---
Discharge Summary Hospital Course Date of Admission Jun 22, 2017 at 05:18 Date of Discharge Jun 26, 2017 at 13:30 Admitting Diagnosis HPI Fili Núñez is a 37 year old male who was admitted on Jun 22, 2017 at 05:18 for Lumbar Instability Hospital Course [id number] Discharge Discharge Disposition Patient was discharged to Home (01) Discharge Diagnoses: Bettie Shen NP Jun 28, 2017 09:51
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
== END 2017-06-26 13:30 | disposition home or self-care (01) | DRG 460 ==
LOC: SDSOVERFLO 05:18 → 3E 14:30
PROC: 0SG00A0 Fusion of Lumbar Vertebral Joint with Interbody Fusion Device, Anterior Approach, Anterior Column, Open Approach (ICD-10-PCS; principal; 2017-06-22 07:00)
PROC: 0SG30A0 Fusion of Lumbosacral Joint with Interbody Fusion Device, Anterior Approach, Anterior Column, Open Approach (ICD-10-PCS; principal; 2017-06-22 07:00)
PROC: 3E0U0GB Introduction of Recombinant Bone Morphogenetic Protein into Joints, Open Approach (ICD-10-PCS; principal; 2017-06-22 07:00)
PROC: 4A11X4G Monitoring of Peripheral Nervous Electrical Activity, Intraoperative, External Approach (ICD-10-PCS; principal; 2017-06-22 07:00)
DX: M51.26 Other intervertebral disc displacement, lumbar region (principal); R00.1 Bradycardia, unspecified; G89.18 Other acute postprocedural pain; Z72.89 Other problems related to lifestyle
CPT/HCPCS: 36415; 72020; 72131; 76001; 86850; 86900; 86901; 87081; 94003; 94150; J2405; J2710

== ENCOUNTER 2018-02-15 05:08 | Inpatient (IN) | payer OTHER ==
[2018-02-15] VITALS (9 sets, daily range): BP systolic 102–134; BP diastolic 62–89
[~2018-02-15] VITALS: Ht 170.2 cm; Wt 81.6 kg
[2018-02-15] MEDS ORDERED: Dexamethasone 20mg/5ml ONE (05:57)
[2018-02-15] MEDS ORDERED: Zemuron 50mg/5ml Inj IV ONE (06:05)
[2018-02-15] MEDS ORDERED: Thrombin 5000 units TOPIC ONE (06:31)
[2018-02-15] MEDS ORDERED: Lidocaine 1% Plain 30 ml INJ ONE ×2 (06:32→06:42)
[2018-02-15] MEDS ORDERED: Bacitracin 50000 Units Vial ONE (06:32)
[2018-02-15] MEDS ORDERED: LR 1000ml 1,000 ML IVLG SCH (06:35)
--- NOTE | 2018-02-15 06:36 | Anethesia Preoperative Eval ---
Anesthesia Pre-op PMH/ROS General Date of Evaluation: February 15, 2018 Time of Evaluation: 06:56 Anesthesiologist: Abigail ASA Score: ASA 1 Mallampati Score Class I : Soft palate, uvula, fauces, pillars visible Class II: Soft palate, uvula, fauces visible Class III: Soft palate, base of uvula visible Class IV: Only hard plate visible Mallampati Classification: Class II Surgeon: Oz Diagnosis: Back Pain Surgical Procedure: L4-5,L5-S1 Post Removal Hardware Anesthesia History: none Family History: no anesthesia problems Allergies: Coded Allergies: No Known Allergies (Unverified , 06/19/17) Past Medical History Other: obesity - BMI 30 PSxH Narrative: Spine SX Anesthesia Pre-op Phys. Exam Physician Exam Last Vital Signs Date Time Temp Pulse Resp B/P (MAP) Pulse Ox O2 Delivery O2 Flow Rate FiO2 02/15/18 05:41 97.1 56 18 115/70 97 Room Air 97.1 Constitutional: NAD Neurologic: CN 2-12 intact Cardiovascular: RRR Respiratory: CTA Gastrointestinal: S/NT/ND Airway Exam Mallampati Score: Class II MO: full ROM: full Teeth: intact Anesthesia Pre-op A/P Risk Assessment & Plan Assessment: ASA 1 Plan: GA, BIS, GlideScope Status Change Before Surgery: No Pre-Antibiotics Dru Grams Ancef IV Given Within 1 Hr of Incision: Yes Time Given: 07:11 Cliff Hayes MD February 15, 2018 06:36
[2018-02-15] MEDS ORDERED: Sodium Chloride 10ml vial INJ ONE ×2 (06:41→07:00)
[2018-02-15] MEDS ORDERED: Lidocaine 1% MPF 10mg/ml 5ml ONE (06:41)
[2018-02-15] MEDS ORDERED: fentaNYL 100 mcg/2 mL IV ONE ×2 (06:42→08:17)
[2018-02-15] MEDS ORDERED: Metoclopramide 10mg/2ml Inj IVP PRN (06:45)
[2018-02-15] MEDS ORDERED: Chloraseptic Spray 20mL Bottle ORAL PRN (06:45)
[2018-02-15] MEDS ORDERED: Midazolam 2mg/2ml Inj IVP PRN (06:45)
[2018-02-15] MEDS ORDERED: Atropine Inj 1mg/10ml Syr IV PRN (06:45)
[2018-02-15] MEDS ORDERED: DiphenhydrAMINE 50mg/ml Inj IVP PRN (06:45)
[2018-02-15] MEDS ORDERED: Norco 5mg/325mg tab ORAL PRN (06:45)
[2018-02-15] MEDS ORDERED: HYDROcodone/Acetamin 7.5/325 tab ORAL PRN (06:45)
[2018-02-15] MEDS ORDERED: oxyCODONE HCL/Acetaminophen 5/325mg ORAL PRN (06:45)
[2018-02-15] MEDS ORDERED: Ketorolac 30mg Inj IV PRN ×2 (06:45)
[2018-02-15] MEDS ORDERED: fentaNYL 100 mcg/2 mL IV PRN (06:45)
[2018-02-15] MEDS ORDERED: Milk of Magnesia 30ml Ud ORAL PRN (06:45)
[2018-02-15] MEDS ORDERED: Labetalol 5mg/ml 20ml vial IV PRN (06:45)
[2018-02-15] MEDS ORDERED: LORazepam Inj 2mg/ml 1ml IV PRN (06:45)
[2018-02-15] MEDS ORDERED: Morphine Sulfate 4mg/ml Inj IM PRN (06:45)
[2018-02-15] MEDS ORDERED: HYDROcodone/Acetamin 10/325 tab ORAL PRN (06:45)
[2018-02-15] MEDS ORDERED: ceFAZolin sod 1 GM in D5W 55 ML IVPB ONE (07:00)
[2018-02-15] MEDS ORDERED: Labetalol 5mg/ml 20ml vial IV ONE (07:00)
[2018-02-15] MEDS ORDERED: LR 1000ml ONE (07:00)
[2018-02-15] MEDS ORDERED: Propofol 1,000mg/ 100ml btl IV ONE (07:00)
[2018-02-15] MEDS ORDERED: NS Irrig 1000ml ONE (07:00)
[2018-02-15] MEDS ORDERED: Dexamethasone 20mg/5ml IVP ONE (07:00)
[2018-02-15] MEDS ORDERED: Sterile Water Irrig 1000ml IRRIG ONE (07:00)
--- NOTE | 2018-02-15 07:06 | Pre-Procedure Note/Attestation ---
Pre-Procedure Note/Attestation Complete Prior to Procedure Planned Procedure: not applicable Procedure Narrative: Explore Fusion Remove Pedicle Screws Scar Xray Indications for Procedure Pre-Operative Diagnosis: Instrumentation pain Attestation I attest that I discussed the nature of the procedure; its benefits; risks and complications; and alternatives (and the risks and benefits of such alternatives ), prior to the procedure, with the patient (or the patient's legal representative personal service). I attest that, if there was a reasonable possibility of needing a blood transfusion, the patient (or the patient's legal representative personal service) was given the [facility] standardized written summary, pursuant to the [place] Blood Safety Act ([place] Health and Safety Code # 1645, as amended). I attest that I re-evaluated the patient just prior to the surgery and that there has been no change in the patient's H&P, except as documented below: SERGIO BIGGS February 15, 2018 07:06
[2018-02-15] MEDS ORDERED: Acetaminophen (Non formulary) 100 ML IV ONE (07:30)
--- NOTE | 2018-02-15 08:09 | Immediate Post-Op Evaluation ---
Immediate Post-Op Evalulation Immediate Post-Op Evalulation Procedure: L4-5,L5-S1 Post Removal Hardware Date of Evaluation: February 15, 2018 Time of Evaluation: 09:28 IV Fluids: 700 LR Blood Products: 0 Estimated Blood Loss: 50 Urinary Output: 0 Blood Pressure Systolic: 118 Blood Pressure Diastolic: 76 Pulse Rate: 73 Respiratory Rate: 16 O2 Sat by Pulse Oximetry: 97 Temperature (Fahrenheit): 97.7 Pain Score (1-10): 2 Nausea: No Vomiting: No Complications 0 Patient Status: awake, reacts, patent, extubated, none Hydration Status: adequate Dru Grams Acef IV Given Within 1 Hr of Incision: Yes Time Given: 07:11 Cliff Hayes MD February 15, 2018 08:09
[2018-02-15] MEDS ORDERED: Neostigmine 1mg/ml 10ml Inj ONE (08:13)
[2018-02-15] MEDS ORDERED: Glycopyrrolate 0.2mg/ml 1ml Vial ONE (08:16)
--- NOTE | 2018-02-15 08:39 | Brief Operative Note ---
Immediate Post Operative Note Operative Note Pre-op Diagnosis: Instrumentation pain Procedure: Explore fusion Remove Instrumentation Xray Scar Magnification Post-op Diagnosis: same as pre-op Findings: consistent w/pre-op dx studies Surgeon: Oz WAY Field Operations Farm Manager: Miguelito SWEENEY Anesthesiologist: Abigail WAY Anesthesia: general Specimen: yes Complications: none Condition: stable Fluids: anesthesia Estimated Blood Loss: minimal Drains: none Implant(s) used?: No SERGIO BIGGS February 15, 2018 08:39
[2018-02-15] MEDS: D5 1/2NS 1,000 ML IV SCH ×2 (08:40→17:00)
[2018-02-15] MEDS ORDERED: Naloxone 0.4mg/ml Inj IVP PRN (08:45)
[2018-02-15] MEDS ORDERED: Docusate 100mg/10ml Liq NG SCH (09:00)
[2018-02-15] MEDS ORDERED: Meperidine 50mg/ml Inj(FOR RIGORS ONLY) IVP PRN (09:15)
--- NOTE | 2018-02-15 09:18 | 48 Hour Post Anesthesia Eval ---
Post Anesthesia Evaluation Procedure: L4-5,L5-S1 Post Removal Hardware Date of Evaluation: February 15, 2018 Time of Evaluation: 11:34 Blood Pressure Systolic: 112 0: 73 Pulse Rate: 67 Respiratory Rate: 18 Temperature (Fahrenheit): 98.2 O2 Sat by Pulse Oximetry: 97 Airway: patent Nausea: No Vomiting: No Pain Intensity: 2 Hydration Status: adequate Cardiopulmonary Status: Stable Mental Status/LOC: patient returned to baseline Follow-up Care/Observations: 0 Post-Anesthesia Complications: 0 Follow-up care needed: N/A Cliff Hayes MD February 15, 2018 09:18
--- NOTE | 2018-02-15 12:09 | Diagnostic Imaging Report ---
Indication: Back pain Comparison: None Findings: 2 fluoroscopic views of the lumbar spine were obtained. Posterior instrumentation removed L4-S1. Prosthetic disks at L4-5 and L5-S1 noted. IMPRESSION: Intraoperative imaging
[2018-02-15] MEDS ORDERED: ceFAZolin sod 1 GM in D5W 55 ML IV SCH (14:00)
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
--- NOTE | 2018-02-15 19:31 | Operative Note - Dictated ---
DATE OF OPERATION: 02/15/2018 SURGEON: Phillip Clinton, Ph.D., M.D. SPA COORDINATOR: PATEL Al. ANESTHESIA: General with intubation. ANESTHESIOLOGIST: Cliff Hayes M.D. ESTIMATED BLOOD LOSS: Minimal. FLUIDS: Please see anesthesia report. SPECIMEN: Removed pedicle screw instrumentation to pathology. INTRAOPERATIVE OBSERVATION: Intact fusion at L4-L5-S1. OPERATIVE PROCEDURES: 1. Operation through scar tissue posterior. 2. Removal of interconnecting rods. 3. Determination/exploration of fusion mass. 4. Removal of pedicle screw instrumentation. 5. Local anesthetic applied by surgeon. 6. High-power magnification dissection. DESCRIPTION OF PROCEDURE: The patient was brought to the operating room and in the supine position, general anesthesia with intubation was induced. IV antibiotics and IV Decadron were administered 30 minutes prior to incision time. The patient was carefully turned and positioned in prone position with the lumbodorsal spine sterilely prepped. Spinal needle was placed asymmetrical lateral at the appropriate intervals and fluoroscopic imaging obtained under sterile conditions, interpreted by surgeon demonstrating a correct level for incision placement. [place] removed. Back re-sterilely prepped and draped free in usual sterile fashion. Utilizing the prior midline longitudinal incision, sharp dissection was carried through dermis and epidermis scar tissue and the subcutaneous scar tissue. Electrocautery dissection was carried through scar tissue to the level of lumbodorsal fascia that was incised midline with lateralization of the right and left to the pedicle screw instrumentation. It was identified and isolated. Interconnecting rods were removed bilaterally. Stressing revealed no motion at the fusion. Fusion is intact. Wound irrigated with antibiotic-containing saline. Removal of pedicle screw instrumentation. FloSeal applied after copious irrigation. Sequential reapproximation of the lumbodorsal fascia, subcutaneous tissue, dermis, and epidermis. Local anesthetic 1% lidocaine with epinephrine was instilled bilateral dermal/subcutaneous intervals. Surgical strips applied followed with Dermabond followed with sterile bandage after Dermabond was solidified. Bandage maintained in place with tape. The patient was carefully turned from the prone to supine position and was transported to bed where he was awakened and extubated in the operating room and transported to postop recovery in good stable condition. Phillip Clinton M.D. DR: PAPITO JOB#: [id number] CC:
[2018-02-15] MEDS ORDERED: LORazepam 0.5mg tab ORAL SCH (21:00)
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
== END 2018-02-15 18:11 | disposition home or self-care (01) | DRG 517 ==
LOC: SUR 05:08 → MERGE 07:00 → 3E 11:24
DX: T84.84XA Pain due to internal orthopedic prosthetic devices, implants and grafts, initial encounter (principal); Y83.8 Other surgical procedures as the cause of abnormal reaction of the patient, or of later complication, without mention of misadventure at the time of the procedure; M54.5 Low back pain; Z98.1 Arthrodesis status; V89.2XXS Person injured in unspecified motor-vehicle accident, traffic, sequela; Z87.891 Personal history of nicotine dependence
CPT/HCPCS: 36415; 72020; 76001; 86850; 86900; 86901; 87081; 94003; 94150; J2405; J2710